=== PATIENT | female | born 1990 | race Caucasian/White ===

== ENCOUNTER 2020-02-15 21:39 | Observation (INO) ==
[2020-02-15] MEDS ORDERED: NALOXONE 0.4 MG/ML VIAL IV STA ×2 (21:50)
[2020-02-15 22:10] LABS: Amorphous Crystals,Urine Occasional /HPF (Few); Barbiturates Screen,Urine Negative (Negative); Benzodiazepines Screen,Urine Positive (Negative); Bilirubin,Urine Negative (Negative); Blood, Urine Negative (Negative); Cannabinoid Screen,Urine Negative (Negative); Glucose,Urine (UA) 150 mg/dL (Negative); Hyaline Casts,Urine 32 /LPF (0-3); Ketones,Urine Negative (Negative); Mucus,Urine Occasional /LPF (Occasional); Nitrite,Urine Negative (Negative); Opiate Screen,Urine Negative (Negative); Phencyclidine Screen,Urine Negative (Negative); Protein,Urine 100 MG/DL; Squamous Epithelial Cell,Urine Occasional /HPF (0-10); Urine Appearance CLOUDY (Clear); Urine Color Yellow (Yellow); Urine Specific Gravity 1.014 (1.001-1.035); Urine Urobilinogen < 2.0 EU/DL (0.2-1.0); WBC,Urine 2 /HPF (0-6)
[2020-02-15 22:36] LABS: Basophils % 0.4 % (0.0-0.8); Eosinophils # 0.3 10*3/uL (0.0-0.87); Eosinophils % 5.7 % (0.00-10.9); Hemoglobin 13.1 GM/DL (12.0-16.0); Immature Granulocytes % 0.2 %; Immature Granulocytes Absolute 0.01 #; Lymphocytes # 1.9 10*3/uL (1.4-4.0); Lymphocytes % 39.4 % (21.3-54.2); Mean Corpuscular HGB Conc 32.8 GM/DL (32-36); Mean Corpuscular Volume 91.3 FL (87-102); Mean Platelet Volume 9.4 FL (9.6-12.0); Monocytes % 6.9 % (1.7-12.7); Neutrophils % 47.4 % (38.7-73.9); Platelet Count 200 T/CUMM (130-400); Red Blood Count 4.38 MC/CUMM (3.8-5.5); Red Cell Distribution Width 12.8 % (9.3-17.3); White Blood Count 4.9 T/CUMM (4-12)
[2020-02-15 22:57] LABS: Alanine Aminotransferase 24 U/L (13-56); Albumin 3.3 G/DL (3.4-5.0); Alkaline Phosphatase 92 U/L (45-117); Aspartate Amino Transferase 20 U/L (0-37); Bilirubin,Total < 0.39 MG/DL (0.2-1.0); Blood Urea Nitrogen 14 MG/DL (7-18); Calcium 8.7 MG/DL (8.5-10.1); Carbon Dioxide 28 MMOL/L (21-32); Estimated Glom Filtration Rate 62 ML/MIN; Glucose 233 MG/DL (74-106); Osmolality,Calculated 282.7 MOS/KG (273-304); Sodium 138 MMOL/L (136-145); Total Protein 6.8 G/DL (6.4-8.3)
[2020-02-16] MEDS ORDERED: LACTATED RINGERS 1,000 ML IV ONE (00:57)
[2020-02-16] MEDS ORDERED: NALOXONE 0.4 MG/ML VIAL IV PRN (01:01)
[2020-02-16] MEDS ORDERED: DEXTROSE 50% 25 GM/50 ML VIAL IV PRN (01:01)
[2020-02-16] MEDS ORDERED: ACETAMINOPHEN 325 MG TABLET PO PRN (01:01)
[2020-02-16] MEDS ORDERED: GLUCAGON 1 MG VIAL IM PRN (01:01)
[2020-02-16] MEDS ORDERED: NICOTINE 21 MG/24 HR PATCH TRANSDERM PRN (01:01)
[2020-02-16] MEDS ORDERED: ONDANSETRON 4 MG/2 ML VIAL IV PRN (01:01)
[2020-02-16] MEDS: SODIUM CHLORIDE 0.9% 1,000 ML IV SCH ×2 (03:02→10:21)
[2020-02-16 07:19] LABS: Calcium 8.2 MG/DL (8.5-10.1); Osmolality,Calculated 280.3 MOS/KG (273-304); Potassium 3.8 MMOL/L (3.5-5.1)
[2020-02-16 11:42] VITALS: BP 94/54
== END 2020-02-16 13:39 | disposition home or self-care (01) ==
LOC: N.EDINP 21:39 → N.ED 21:39 → N.5E 02-16 02:04
PROVIDERS: ADMIT Internal Medicine; ATTEND Internal Medicine

== ENCOUNTER 2021-05-17 04:03 | Inpatient (IN) ==
[2021-05-17] MEDS ORDERED: SODIUM CHLORIDE 0.9% 1,000 ML IV STA ×3 (04:36→07:36)
[2021-05-17 05:17] LABS: Eosinophils % 0.1 % (0.00-10.9); Hemoglobin 12.8 GM/DL (12.0-16.0); Immature Granulocytes % 0.3 %; Immature Granulocytes Absolute 0.03 #; Lymphocytes # 0.4 10*3/uL (1.4-4.0); Lymphocytes % 3.6 % (21.3-54.2); Mean Corpuscular HGB Conc 34.6 GM/DL (32-36); Mean Corpuscular Volume 87.1 FL (87-102); Monocytes % 1.7 % (1.7-12.7); Neutrophils % 94.3 % (38.7-73.9); Platelet Count 145 T/CUMM (130-400); Red Blood Count 4.25 MC/CUMM (3.8-5.5); Red Cell Distribution Width 12.2 % (9.3-17.3); White Blood Count 9.9 T/CUMM (4-12)
[2021-05-17] MEDS ORDERED: PIPERACILLIN/TAZOBACTAM 3,375 MG in SODIUM CHLORIDE 0.9% 100 ML IV STA (05:17)
[2021-05-17] MEDS ORDERED: ONDANSETRON 4 MG/2 ML VIAL IV ONE (05:18)
[2021-05-17] MEDS ORDERED: MORPHINE 4 MG/1 ML VIAL IV STA (05:21)
[2021-05-17 05:36] LABS: Band Neutrophils 5 % (0-10); Lymphocytes 4 % (20-55); Platelet Estimate Normal; Segmented Neutrophils 86 % (50-85); Total Cells Counted 100
[2021-05-17 05:41] LABS: INR 1.2; PT Patient Result 12.9 SECS (10.5-12.0)
[2021-05-17 05:46] LABS: Bilirubin,Total 0.7 MG/DL (0.20-1.00); Calcium 9.2 MG/DL (8.5-10.1); Osmolality,Calculated 280.1 MOS/KG (273-304); Potassium 3.3 MMOL/L (3.5-5.1); Total Protein 6.9 G/DL (6.4-8.2)
[2021-05-17 06:08] LABS: Amorphous Crystals,Urine Occasional /HPF (Few); Bacteria,Urine Occasional /HPF (Few); Mucus,Urine Few /LPF (Occasional); RBC,Urine 1 /HPF (0-4); Squamous Epithelial Cell,Urine Few /HPF (0-10)
[2021-05-17 06:09] LABS: Glucose,Urine (UA) Negative (Negative); Ketones,Urine Negative (Negative); Nitrite,Urine Negative (Negative); Protein,Urine 1+ mg/dL (Negative); Urine Appearance Slightly Cloudy (Clear); Urine Color Yellow (Yellow); Urine Specific Gravity 1.015 (1.001-1.035); Urine pH 5.5 (4.5-8.0)
[2021-05-17 06:10] LABS: Bilirubin,Urine Negative (Negative); Blood, Urine Negative (Negative)
[2021-05-17 06:40] LABS: Barbiturates Screen,Urine Negative (Negative); Benzodiazepines Screen,Urine Negative (Negative); Cannabinoid Screen,Urine Negative (Negative); Opiate Screen,Urine Negative (Negative); Phencyclidine Screen,Urine Negative (Negative)
[2021-05-17] MEDS ORDERED: MAGNESIUM SULF RIDER 4 GM/100 ML PREMIX IV PRN (07:37)
[2021-05-17] MEDS ORDERED: guaiFENesin/DM ER 600-30 MG TABLET PO PRN (07:37)
[2021-05-17] MEDS ORDERED: NICOTINE 21 MG/24 HR PATCH TRANSDERM PRN (07:37)
[2021-05-17] MEDS ORDERED: GLUCAGON 1 MG VIAL IM PRN (07:37)
[2021-05-17] MEDS ORDERED: MAGNESIUM SULF RIDER 2 GM/50 ML PREMIX IV PRN (07:37)
[2021-05-17] MEDS ORDERED: POTASSIUM CHLORIDE 20 MEQ TABLET PO PRN (07:37)
[2021-05-17] MEDS ORDERED: ACETAMINOPHEN 325 MG TABLET PO PRN (07:37)
[2021-05-17] MEDS ORDERED: ONDANSETRON 4 MG/2 ML VIAL IV PRN (07:37)
[2021-05-17] MEDS ORDERED: DEXTROSE 10% 250 ML BAG IV PRN (07:44)
[2021-05-17] MEDS ORDERED: LORazepam 2 MG/1 ML VIAL IV PRN (07:45)
[2021-05-17] MEDS: cefTRIAXone 1,000 MG in SODIUM CHLORIDE 0.9% 100 ML IV SCH (08:20)
[2021-05-17] MEDS: LACTATED RINGERS 1,000 ML IV SCH ×2 (08:20→17:07)
[2021-05-17] MEDS: ENOXAPARIN 40 MG/0.4 ML SYRINGE SUBCUT SCH (08:30)
[2021-05-17] MEDS: PANTOPRAZOLE 40 MG TABLET PO SCH (08:30)
[2021-05-17] MEDS ORDERED: TUBERCULIN SKIN TEST 0.1 ML SYRINGE INTRADERM ONE (08:33)
[2021-05-17] MEDS: LEVOFLOXACIN INJ 750 MG/150 ML PREMIX IV SCH (08:44)
[2021-05-17] MEDS: CYCLOBENZAPRINE 10 MG TABLET PO PRN (09:25)
[2021-05-17] MEDS: ALBUTEROL 2.5 MG/3 ML NEB RESP TX SCH ×2 (13:45→19:01)
[2021-05-17] MEDS ORDERED: hydrALAZINE 20 MG/1 ML VIAL IV PRN (16:27)
[2021-05-17] MEDS: guaiFENesin 200 MG/10 ML UDCUP PO PRN (23:39)
[2021-05-18] MEDS: ALBUTEROL 2.5 MG/3 ML NEB RESP TX SCH ×4 (00:24→19:08)
[2021-05-18 06:33] LABS: Basophils # 0.1 10*3/uL (0.0-0.2); Basophils % 0.8 % (0.0-0.8); Eosinophils % 0.4 % (0.00-10.9); Hematocrit 31.3 VOL% (35.7-47.0); Hemoglobin 10.9 GM/DL (12.0-16.0); Immature Granulocytes % 1.8 %; Immature Granulocytes Absolute 0.15 #; Lymphocytes # 1.2 10*3/uL (1.4-4.0); Lymphocytes % 13.7 % (21.3-54.2); Mean Corpuscular HGB Conc 34.8 GM/DL (32-36); Mean Corpuscular Volume 86.5 FL (87-102); Mean Platelet Volume 10.9 FL (9.6-12.0); Monocytes % 1.8 % (1.7-12.7); Neutrophils % 81.5 % (38.7-73.9); Platelet Count 106 T/CUMM (130-400); Red Blood Count 3.62 MC/CUMM (3.8-5.5); Red Cell Distribution Width 12.3 % (9.3-17.3); White Blood Count 8.5 T/CUMM (4-12)
[2021-05-18] MEDS: LACTATED RINGERS 1,000 ML IV SCH ×3 (06:34→23:07)
[2021-05-18 06:52] LABS: Albumin 1.3 G/DL (3.4-5.0); Bilirubin,Total 0.5 MG/DL (0.20-1.00); Calcium 8.6 MG/DL (8.5-10.1); Osmolality,Calculated 280.4 MOS/KG (273-304); Potassium 2.8 MMOL/L (3.5-5.1); Total Protein 5.4 G/DL (6.4-8.2)
[2021-05-18 07:26] LABS: Anisocytosis Slight; Band Neutrophils 7 % (0-10); Eosinophils 2 % (0-10); Lymphocytes 11 % (20-55); Platelet Estimate Adequate; Segmented Neutrophils 80 % (50-85); Total Cells Counted 100
[2021-05-18 07:27] LABS: Burr Cells Few; Target Cells Few
[2021-05-18] MEDS: cefTRIAXone 1,000 MG in SODIUM CHLORIDE 0.9% 100 ML IV SCH (08:20)
[2021-05-18] MEDS: PANTOPRAZOLE 40 MG TABLET PO SCH (08:20)
[2021-05-18] MEDS: ENOXAPARIN 40 MG/0.4 ML SYRINGE SUBCUT SCH (08:20)
[2021-05-18] MEDS: LEVOFLOXACIN INJ 750 MG/150 ML PREMIX IV SCH (09:39)
[2021-05-18] MEDS: POTASSIUM CHLORIDE 20 MEQ TABLET PO SCH ×2 (09:42→11:49)
[2021-05-18] MEDS ORDERED: LACTATED RINGERS 500 ML IV ONE (13:12)
[2021-05-18] MEDS: CYCLOBENZAPRINE 10 MG TABLET PO PRN (15:17)
[2021-05-18 19:23] LABS: Calcium 8.3 MG/DL (8.5-10.1)
[2021-05-18 19:58] LABS: Potassium 3.8 MMOL/L (3.5-5.1)
[2021-05-18 19:59] LABS: Osmolality,Calculated 274.8 MOS/KG (273-304)
[2021-05-19] MEDS: ALBUTEROL 2.5 MG/3 ML NEB RESP TX SCH ×4 (00:15→19:37)
[2021-05-19] MEDS: LACTATED RINGERS 1,000 ML IV SCH ×4 (02:28→17:27)
[2021-05-19] MEDS: guaiFENesin 200 MG/10 ML UDCUP PO PRN ×3 (04:12→20:05)
[2021-05-19 07:54] LABS: Basophils % 0.4 % (0.0-0.8); Hematocrit 32.1 VOL% (35.7-47.0); Hemoglobin 10.9 GM/DL (12.0-16.0); Immature Granulocytes % 3.9 %; Immature Granulocytes Absolute 0.41 #; Lymphocytes # 1.1 10*3/uL (1.4-4.0); Lymphocytes % 10.9 % (21.3-54.2); Mean Corpuscular Volume 89.2 FL (87-102); Mean Platelet Volume 12.1 FL (9.6-12.0); Monocytes % 4.2 % (1.7-12.7); Neutrophils % 80.6 % (38.7-73.9); Platelet Count 161 T/CUMM (130-400); Red Cell Distribution Width 14.4 % (9.3-17.3); White Blood Count 10.4 T/CUMM (4-12)
[2021-05-19 08:20] LABS: Hypochromia Slight; Lymphocytes 5 % (20-55); Microcytosis Slight; Platelet Estimate Adequate; Segmented Neutrophils 87 % (50-85); Total Cells Counted 100
[2021-05-19] MEDS: cefTRIAXone 1,000 MG in SODIUM CHLORIDE 0.9% 100 ML IV SCH (09:20)
[2021-05-19] MEDS: ENOXAPARIN 40 MG/0.4 ML SYRINGE SUBCUT SCH (09:20)
[2021-05-19] MEDS: PANTOPRAZOLE 40 MG TABLET PO SCH (09:20)
[2021-05-19] MEDS: LEVOFLOXACIN INJ 750 MG/150 ML PREMIX IV SCH (09:21)
[2021-05-19 10:32] LABS: Osmolality,Calculated 273.8 MOS/KG (273-304); Potassium 3.7 MMOL/L (3.5-5.1)
[2021-05-19] MEDS: MORPHINE 4 MG/1 ML VIAL IV PRN ×2 (14:59→20:03)
[2021-05-20] MEDS: MORPHINE 4 MG/1 ML VIAL IV PRN (01:03)
[2021-05-20] MEDS: ALBUTEROL 2.5 MG/3 ML NEB RESP TX SCH ×4 (01:18→19:44)
[2021-05-20] MEDS: guaiFENesin/CODEINE 5 ML LIQUID PO PRN ×3 (04:25→21:10)
[2021-05-20] MEDS: LACTATED RINGERS 1,000 ML IV SCH ×3 (04:33→21:10)
[2021-05-20 06:00] LABS: Basophils # 0.1 10*3/uL (0.0-0.2); Basophils % 0.4 % (0.0-0.8); Eosinophils % 0.1 % (0.00-10.9); Hemoglobin 10.7 GM/DL (12.0-16.0); Immature Granulocytes % 2.6 %; Immature Granulocytes Absolute 0.31 #; Lymphocytes # 1.4 10*3/uL (1.4-4.0); Lymphocytes % 11.7 % (21.3-54.2); Mean Corpuscular HGB Conc 34.5 GM/DL (32-36); Mean Corpuscular Volume 87.1 FL (87-102); Mean Platelet Volume 10.9 FL (9.6-12.0); Monocytes % 6.8 % (1.7-12.7); Neutrophils % 78.4 % (38.7-73.9); Platelet Count 136 T/CUMM (130-400); Red Blood Count 3.56 MC/CUMM (3.8-5.5); Red Cell Distribution Width 12.7 % (9.3-17.3); White Blood Count 11.7 T/CUMM (4-12)
[2021-05-20 06:14] LABS: Calcium 7.9 MG/DL (8.5-10.1); Osmolality,Calculated 277.5 MOS/KG (273-304); Potassium 3.6 MMOL/L (3.5-5.1)
[2021-05-20] MEDS: cefTRIAXone 1,000 MG in SODIUM CHLORIDE 0.9% 100 ML IV SCH (09:37)
[2021-05-20] MEDS: PANTOPRAZOLE 40 MG TABLET PO SCH (09:37)
[2021-05-20] MEDS: ENOXAPARIN 40 MG/0.4 ML SYRINGE SUBCUT SCH (09:37)
[2021-05-20] MEDS: LEVOFLOXACIN 750 MG TABLET PO SCH (09:37)
[2021-05-20] MEDS: guaiFENesin 200 MG/10 ML UDCUP PO PRN (09:38)
[2021-05-20] MEDS ORDERED: ALBUTEROL/IPRATROPIUM 3 ML NEB RESP TX PRN (16:29)
[2021-05-20] MEDS: methylPREDNISolone SOD SUC 125 MG/2 ML VIAL IV SCH (16:50)
[2021-05-20] MEDS: MONTELUKAST 10 MG TABLET PO SCH (16:50)
[2021-05-20] MEDS: DORNASE ALFA 2.5 MG/2.5 ML VIAL RESP TX SCH (19:51)
[2021-05-21] MEDS: ALBUTEROL 2.5 MG/3 ML NEB RESP TX SCH ×8 (00:14→23:35)
[2021-05-21] MEDS: methylPREDNISolone SOD SUC 125 MG/2 ML VIAL IV SCH ×3 (01:05→16:30)
[2021-05-21] MEDS: guaiFENesin/CODEINE 5 ML LIQUID PO PRN ×3 (02:28→17:05)
[2021-05-21] MEDS: LACTATED RINGERS 1,000 ML IV SCH ×3 (06:27→17:24)
[2021-05-21 06:52] LABS: Basophils % 0.3 % (0.0-0.8); Hematocrit 34.5 VOL% (35.7-47.0); Hemoglobin 11.6 GM/DL (12.0-16.0); Immature Granulocytes % 5.5 %; Immature Granulocytes Absolute 0.22 #; Lymphocytes # 0.7 10*3/uL (1.4-4.0); Lymphocytes % 17.3 % (21.3-54.2); Mean Corpuscular HGB Conc 33.6 GM/DL (32-36); Mean Corpuscular Volume 89.1 FL (87-102); Mean Platelet Volume 11.5 FL (9.6-12.0); Neutrophils % 74.9 % (38.7-73.9); Platelet Count 173 T/CUMM (130-400); Red Blood Count 3.87 MC/CUMM (3.8-5.5); Red Cell Distribution Width 12.8 % (9.3-17.3)
[2021-05-21 07:12] LABS: Lymphocytes 14 % (20-55); Segmented Neutrophils 86 % (50-85); Total Cells Counted 100
[2021-05-21 07:13] LABS: Hypochromia Slight; Microcytosis Slight; Platelet Estimate Adequate
[2021-05-21 07:15] LABS: Calcium 8.6 MG/DL (8.5-10.1); Osmolality,Calculated 278.8 MOS/KG (273-304); Potassium 4.2 MMOL/L (3.5-5.1)
[2021-05-21] MEDS: DORNASE ALFA 2.5 MG/2.5 ML VIAL RESP TX SCH ×2 (07:27→19:22)
[2021-05-21] MEDS: cefTRIAXone 1,000 MG in SODIUM CHLORIDE 0.9% 100 ML IV SCH (09:14)
[2021-05-21] MEDS: LEVOFLOXACIN 750 MG TABLET PO SCH (09:16)
[2021-05-21] MEDS: MONTELUKAST 10 MG TABLET PO SCH (09:16)
[2021-05-21] MEDS: ENOXAPARIN 40 MG/0.4 ML SYRINGE SUBCUT SCH (09:17)
[2021-05-21] MEDS: MORPHINE 4 MG/1 ML VIAL IV PRN (12:24)
[2021-05-21] MEDS: PANTOPRAZOLE 40 MG TABLET PO SCH (17:06)
[2021-05-21] MEDS: CYCLOBENZAPRINE 10 MG TABLET PO PRN (21:29)
[2021-05-21] MEDS ORDERED: MELATONIN 3 MG TABLET PO ONE (21:37)
[2021-05-22] MEDS: methylPREDNISolone SOD SUC 125 MG/2 ML VIAL IV SCH ×2 (00:28→10:06)
[2021-05-22] MEDS: LACTATED RINGERS 1,000 ML IV SCH (00:28)
[2021-05-22] MEDS: guaiFENesin/CODEINE 5 ML LIQUID PO PRN (02:20)
[2021-05-22] MEDS: ALBUTEROL 2.5 MG/3 ML NEB RESP TX SCH ×2 (03:16→07:20)
[2021-05-22 06:30] LABS: Hematocrit 30.7 VOL% (35.7-47.0); Hemoglobin 10.3 GM/DL (12.0-16.0); Immature Granulocytes Absolute 0.12 #; Lymphocytes # 0.6 10*3/uL (1.4-4.0); Lymphocytes % 9.7 % (21.3-54.2); Mean Corpuscular HGB Conc 33.6 GM/DL (32-36); Mean Corpuscular Volume 90.3 FL (87-102); Mean Platelet Volume 11.4 FL (9.6-12.0); Monocytes % 3.5 % (1.7-12.7); Neutrophils % 84.8 % (38.7-73.9); Platelet Count 260 T/CUMM (130-400); Red Cell Distribution Width 12.9 % (9.3-17.3)
[2021-05-22 06:51] LABS: Osmolality,Calculated 287.5 MOS/KG (273-304)
[2021-05-22] MEDS: DORNASE ALFA 2.5 MG/2.5 ML VIAL RESP TX SCH (07:20)
[2021-05-22] MEDS: cefTRIAXone 1,000 MG in SODIUM CHLORIDE 0.9% 100 ML IV SCH (10:05)
[2021-05-22] MEDS: ENOXAPARIN 40 MG/0.4 ML SYRINGE SUBCUT SCH (10:05)
[2021-05-22] MEDS: LEVOFLOXACIN 750 MG TABLET PO SCH (10:06)
[2021-05-22] MEDS: PANTOPRAZOLE 40 MG TABLET PO SCH (10:06)
[2021-05-22] MEDS: MONTELUKAST 10 MG TABLET PO SCH (10:06)
[2021-05-22 11:35] VITALS: BP 138/76
== END 2021-05-22 13:00 | disposition home or self-care (01) | DRG 139 ==
LOC: EDUNIT# → EDBD → N.ED 04:03 → SUATTDRO 07:37 → N.EDINP 07:37 → N.5E 08:20
PROVIDERS: ADMIT Phlebology; ATTEND Hospitalist